=== PATIENT | male | born 1945 | race Caucasian/White ===

== ENCOUNTER → 2018-01-23 | Emergency (ER) | payer MEDICARE, OTHER ==
[~2018-01-23] MED LIST: MORPHINE SULFATE 4 MG INJ IV ONE; MORPHINE SULFATE 4 MG INJ ONE; Sodium Chloride 0.9% 1000 ML 1,000 ML IV SCH; Zofran 4 MG/2 ML VIAL IV ONE; Zofran 4 MG/2 ML VIAL ONE
--- NOTE | 2018-01-23 18:44 | ERPHSYRPT ---
- History of Present Illness Source: patient, other Exam Limitations: no limitations Patient Subjective Stated Complaint: was told to come to ER for a evaluation to be sent to [facility] since his CT scane showed a subdural hematoma. headaches to the right side of his head x 2 weeks with nausea Triage Nursing Assessment: alert and oriented. states had had headache x 2 weeks. gait steady. answers questions appropriately. alert and orieted to person place and time. 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 no drift. strong flex/extension to all extementies. slightly sluggish pupil response to the right @ 2 bilaterally. states has been nauseated but no vomitintg, states can only recall bumping his head getting into his car on saturday. no LOC. staets at time has focus problems to the right eye. Timing/Duration: week(s) (2), gradual onset Quality: aching, sharpness Head Pain Location: global Severity of Pain-Max: severe Severity of Pain-Current: severe Recent Head Trauma: no recent headache/trauma Associated Symptoms: vision changes Previous symptoms: no prior history Hx Tetanus, Diphtheria Vaccination/Date Given: No Hx Influenza Vaccination/Date Given: Yes Hx Pneumococcal Vaccination/Date Given: No Immunizations Up to Date: Yes <THIERNO VALENCIA - Last Filed: 01/23/18 19:06> <SHAD BOYCE - Last Filed: 01/23/18 19:41> - History of Present Illness Time Seen by Provider: 01/23/18 18:38 Physician History: The patient is a 72-year-old male who was sent to the emergency room after having a head CT done by the nurse practitioner today. The head CT was done because the patient has been having right eye blurry vision and tremendous headaches for [address] showed a large subdural hematoma on the right side. He was told to come to the emergency room so that we can send him to a neurosurgeon. He denies nausea or vomiting. He denies numbness or tingling. He denies hitting his head recently. His past medical history is significant for liver transplant, coronary artery disease, cardiac stent placement last year, hypertension, congestive heart failure, and GERD. (THIERNO VALENCIA) Allergies/Adverse Reactions: zolpidem tartrate [From Ambien] Allergy (Verified 01/23/18 18:39) sleep wallking sleep walking Home Medications: Amlodipine Besylate 10 mg [Norvasc 10 MG] 10 mg PO HS 12/08/15 [History] Aspirin [Aspirin EC] 81 mg PO BID 12/08/15 [History] Clopidogrel Bisulfate 75 mg [PLAVIX 75 MG Tablet] 75 mg PO DAILY 12/08/15 [History] Gabapentin 800 mg PO TID 12/08/15 [History] Lisinopril/Hydrochlorothiazide [Lisinopril-Hctz 20-12.5 mg Tab] 1 each PO HS [History] Metoprolol Tartrate 50 mg PO HS 12/08/15 [History] Oxycodone HCl 7.5 mg PO BID 12/08/15 [History] Ranitidine HCl 150 mg PO DAILY 12/08/15 [History] Tacrolimus [Prograf] 2 mg PO BID 12/08/15 [History] Insulin Glargine,Hum.rec.anlog [Lantus] 74 unit SQ DAILY 06/06/16 [History] Torsemide 20 mg PO BID 06/06/16 [History] - Review of Systems Constitutional: No Fever, No Chills Eyes: Vision Changes Ears, Nose, & Throat: No Symptoms Respiratory: No Cough, No Dyspnea Cardiac: No Chest Pain, No Edema, No Syncope Abdominal/Gastrointestinal: Nausea, No Abdominal Pain, No Vomiting, No Diarrhea Genitourinary Symptoms: No Dysuria Musculoskeletal: No Back Pain, No Neck Pain Skin: No Rash Neurological: Headache Psychological: No Symptoms Endocrine: No Symptoms Hematologic/Lymphatic: No Symptoms Immunological/Allergic: No Symptoms All Other Systems: Reviewed and Negative <THIERNO VALENCIA - Last Filed: 01/23/18 19:06> - Past Medical History Pertinent Past Medical History: Yes Neurological History: Peripheral Neuropathy ENT History: No Pertinent History Cardiac History: High Cholesterol, Hypertension, Peripheral Vascular Disease, Other Respiratory History: Sleep Apnea Endocrine Medical History: Diabetes Type II, Hypothyroidism Musculoskeletal History: No Pertinent History GI Medical History: GERD, Hernia History: No Pertinent History Psycho-Social History: No Pertinent History Male Reproductive Disorders: No Pertinent History Other Medical History: states has had 4 stents p[lace last was in April - Past Surgical History Past Surgical History: Yes Neuro Surgical History: No Pertinent History Cardiac: Cardiac Catheterization, Cardiac Stent Respiratory: No Pertinent History Gastrointestinal: Hernia Repair, Liver Transplant Genitourinary: No Pertinent History Musculoskeletal: Other Male Surgical History: Vasectomy Other Surgical History: neck surgery 1993. Colonoscopies - Social History Smoking Status: Never smoker How long have you smoked: quit 1981 Exposure to second hand smoke: No Drug Use: none Patient Lives Alone: No <THIERNO VALENCIA - Last Filed: 01/23/18 19:06> - Physical Exam General Appearance: no apparent distress Eye Exam: PERRL/EOMI Ears, Nose, Throat Exam: normal ENT inspection, moist mucous membranes Neck Exam: normal inspection, supple, full range of motion, No meningismus Respiratory Exam: normal breath sounds, lungs clear Cardiovascular Exam: regular rate/rhythm, normal heart sounds Gastrointestinal/Abdominal Exam: soft, No tenderness, No distention Back Exam: normal inspection, normal range of motion Extremity Exam: normal inspection Mental Status Exam: alert, oriented x 3, 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, PERRL, No facial droop Motor/Sensory Exam: no motor deficit, no sensory deficit Skin Exam: normal color, other (stasis dermatitis lower extremities) SpO2 Interpretation: normal SpO2: 98 Oxygen Delivery: Room Air <THIERNO VALENCIA - Last Filed: 01/23/18 19:06> - Nursing Vital Signs Nursing Vital Signs: Initial Vital Signs Temperature 97.8 F 01/23/18 18:09 Pulse Rate 50 L 01/23/18 18:09 Respiratory Rate 16 01/23/18 18:09 Blood Pressure 195/92 01/23/18 18:09 O2 Sat by Pulse Oximetry 98 01/23/18 18:09 Pain Scale Pain Intensity 5 - Course Nursing assessment & vital signs reviewed: Yes <SHAD BOYCE - Last Filed: 01/23/18 19:41> Ordered Tests: Active Orders 24 hr Category Date Time Status IV Insertion STAT Care 01/23/18 18:44 Active CBC W DIFF Stat Lab 01/23/18 18:54 Completed CMP Stat Lab 01/23/18 18:54 Completed Lactic Acid Stat Lab 01/23/18 19:02 Completed Manual Differential NC Stat Lab 01/23/18 18:54 Completed PROTIME WITH INR Stat Lab 01/23/18 18:54 Completed Medication Summary Generic Name Dose Route Start Last Admin Trade Name Freq PRN Reason Stop Dose Admin Sodium Chloride 1,000 mls @ 100 mls/hr 01/23/18 18:45 01/23/18 18:49 Sodium Chloride 0.9% 1000 Ml IV 02/22/18 18:44 100 mls/hr .Q10H BRITNEY Administration Discontinued Medications Generic Name Dose Route Start Last Admin Trade Name Eva PRN Reason Stop Dose Admin Morphine Sulfate Confirm 01/23/18 19:11 Morphine Sulfate 4 Mg Inj Administered 01/23/18 19:12 Dose 4 mg .ROUTE .STK-MED ONE Morphine Sulfate 4 mg 01/23/18 19:27 01/23/18 19:15 Morphine Sulfate 4 Mg Inj IV 01/23/18 19:28 4 mg STAT ONE Administration Ondansetron HCl 4 mg 01/23/18 18:48 01/23/18 18:51 Zofran 4 Mg/2 Ml Vial IV 01/23/18 18:49 4 mg STAT ONE Administration Ondansetron HCl Confirm 01/23/18 18:50 Zofran 4 Mg/2 Ml Vial Administered 01/23/18 18:51 Dose 4 mg .ROUTE .STK-MED ONE Lab/Rad Data: Laboratory Result Diagrams 01/23/18 18:54 01/23/18 18:54 Laboratory Results 01/23/18 01/23/18 01/23/18 Range/Units 19:02 18:54 18:54 WBC (4.0-10.5) K/mm3 RBC (4.1-5.6) M/mm3 Hgb (12.5-18.0) gm/dl Hct (42-50) % MCV (78-100) fl MCH (26-32) pg MCHC (32-36) g/dl RDW (11.5-14.0) % Plt Count (150-450) K/mm3 MPV (6-9.5) fl INR 1.06 (0.8-3.0) Sodium 138 (136-145) mEq/L Potassium 5.6 H (3.5-5.1) mEq/L Chloride 106 (98-107) mEq/L Carbon Dioxide 23.5 (21-32) mEq/L Anion Gap 14.4 (5-15) MEQ/L BUN 37 H (9-20) mg/dL Creatinine 3.50 H (0.55-1.30) mg/dl Estimated GFR 18 ML/MIN Glucose 97 (70-110) MG/DL Lactic Acid 0.8 (0.4-2.0) Calcium 7.6 L (8.5-10.1) mg/dL Total Bilirubin 0.40 (0.2-1.0) mg/dL AST 31 (15-37) U/L ALT 20 (12-78) U/L Alkaline Phosphatase 124 H (46-116) U/L Serum Total Protein 5.4 L (6.4-8.2) gm/dL Albumin 2.4 L (3.4-5.0) g/dL 01/23/18 Range/Units 18:54 WBC 4.3 (4.0-10.5) K/mm3 RBC 3.69 L (4.1-5.6) M/mm3 Hgb 11.4 L (12.5-18.0) gm/dl Hct 33.6 L (42-50) % MCV 91.1 (78-100) fl MCH 30.8 (26-32) pg MCHC 33.9 (32-36) g/dl RDW 14.5 H (11.5-14.0) % Plt Count 116 L (150-450) K/mm3 MPV 9.4 (6-9.5) fl INR (0.8-3.0) Sodium (136-145) mEq/L Potassium (3.5-5.1) mEq/L Chloride (98-107) mEq/L Carbon Dioxide (21-32) mEq/L Anion Gap (5-15) MEQ/L BUN (9-20) mg/dL Creatinine (0.55-1.30) mg/dl Estimated GFR ML/MIN Glucose (70-110) MG/DL Lactic Acid (0.4-2.0) Calcium (8.5-10.1) mg/dL Total Bilirubin (0.2-1.0) mg/dL AST (15-37) U/L ALT (12-78) U/L Alkaline Phosphatase (46-116) U/L Serum Total Protein (6.4-8.2) gm/dL Albumin (3.4-5.0) g/dL <THIERNO VALENCIA - Last Filed: 01/23/18 19:06> - Progress Progress: unchanged <SHAD BOYCE - Last Filed: 01/23/18 19:41> - Progress Progress Note: 01/23/18 18:51 Pt care discussed and care transferred to Dr Boyce at 19:00. (THIERNO VALENCIA) 01/23/18 19:39 Pt has been accepted by Dr Quarles at [facility] with the neurosurgeon template reproduction technician was contacted as well. Pt is complaining of increasing pain and was given morphine 4mg IV X 1 dose. Pt has a GCS of 15. INR 1. Creatinine is 3.6 but is at baseline. As per neurosurgery, margaret rodriguez at this time. Pt awaiting transfer to [facility]. (SHAD BOYCE) <THIERNO VALENCIA - Last Filed: 01/23/18 19:06> - Departure Time of Disposition: 19:41 Departure Disposition: Transfer Critical Care Time: Yes Critical Care Time(excluding separately billable procedures): 75-104 minutes <SHAD BOYCE - Last Filed: 01/23/18 19:41> - Departure Clinical Impression: Subdural hematoma Condition: Serious Referrals: MALCOM GOMEZ [Primary Care Provider] -
[2018-01-23 18:59] LABS: Granulocyte Absolute (ANC) 3.18 (1.4-6.9); Hematocrit 33.6 % (42-50); Hemoglobin 11.4 gm/dl (12.5-18.0); Mean Cell Volume 91.1 fl (78-100); Mean Corpuscular Hgb Concent. 33.9 g/dl (32-36); Mean Platelet Volume 9.4 fl (6-9.5); Platelet Count 116 K/mm3 (150-450); Red Blood Count 3.69 M/mm3 (4.1-5.6); Red Cell Distribution Width 14.5 % (11.5-14.0); White Blood Count 4.3 K/mm3 (4.0-10.5)
[2018-01-23 19:01] LABS: Mean Corpuscular Hemoglobin 30.8 pg (26-32)
[2018-01-23 19:21] LABS: INR 1.06 (0.8-3.0)
[2018-01-23 19:31] LABS: ALBUMIN 2.4 g/dL (3.4-5.0); ANION GAP 14.4 MEQ/L (5-15); BILIRUBIN,TOTAL 0.4 mg/dL (0.2-1.0); Calcium 7.6 mg/dL (8.5-10.1); Carbon Dioxide 23.5 mEq/L (21-32); Creatinine 1 3.5 mg/dl (0.55-1.30); Potassium 5.6 mEq/L (3.5-5.1); Total Protein 5.4 gm/dL (6.4-8.2)
[2018-01-23 19:36] VITALS: O2SAT 95
[2018-01-23 20:15] LABS: BAND 2 % (0.0-2.0); Basophil 1 % (0.0-1.0); Eosinophil 5 % (0.00-3.0); Lymphocytes 14 % (24-44); Monocyte 4 % (0.0-12.0); Neutrophils 74 % (36.-66.); Platelet Estimate NORMAL (NORMAL); Total Cells Counted 100
[2018-01-23 20:16] LABS: Basophilic Stippling 1+; Poikilocytosis 1+; Polychromasia 2+; Tear Drop Cells 1+
[2018-01-23 20:18] VITALS: BP 193/79; PULSE 50
== END | disposition short-term general hospital (02) ==
LOC: ED 17:57
DX: I62.00 Nontraumatic subdural hemorrhage, unspecified (principal); R51 Headache; Z79.899 Other long term (current) drug therapy
CPT/HCPCS: 36000; 36415; 70450; 80053; 83605; 85025; 85610; 96360; 96374; 96375; 99285; J2270; J2405